=== PATIENT | female | born 1925 | race Caucasian/White ===

== ENCOUNTER → 2016-05-30 | Outpatient (CLI) | payer OTHER, MEDICARE ==
[~2016-05-30] MED LIST: ASPI81TA25 PO; FIBER PO; ISOS60TA25 PO; LISI20TA3 PO; METO50TA7 PO; PRLSR20 PO; RANI300C PO; RIVA1.5T PO; SIME125C52 PO; SIMV40TA4 PO; TRAM-10 PO
--- NOTE | 2016-05-31 18:31 | ECHOCARDIOGRAM REPORT ---
*NOTICE TO RECEIVING DEMOCRAT AGENCY This information is strictly Confidential and protected under [place] law. [place] law prohibits you from making any further disclosure of this information unless further disclosure is expressly permitted by the written consent of the person to whom it pertains or is authorized by law. A general authorization for the release of medical or other information is not sufficient for this purpose. Hospital accepts no responsibility if the information is made available to any other person, INCLUDING THE PATIENT. Interpretation Summary * Name: AYUSH TUCKER Study Date: 05/30/2016 03:02 PM BP: 116/65 mmHg * Patient Location: [facility] HR: 79 * : 1925 (M/d/yyyy) Gender: Female Height: 63 in * Age: 89 yrs Ethnicity: CA Weight: 162 lb * Ordering Physician: Jesus Wagoner * Referring Physician: Jesus Wagoner * Performed By: Ailyn Carter * * Reason For Study: CHF * BSA: 1.8 m2 * Normal biventricular systolic function. * Mild concentric left ventricular hypertrophy. * Biatrial dilatation. * Mild aortic stenosis and regurgitation. * Mild mitral and tricuspid regurgitation. * Moderately elevated right ventricular systolic pressure. * Normal estimated central venous pressure. * The study was technically difficult. Procedure Details * A complete two-dimensional transthoracic echocardiogram was performed (2D, M-mode, Doppler and color flow Doppler). Left Ventricle * The left ventricle is normal in size. * There is mild concentric left ventricular hypertrophy. * Ejection Fraction = >70 %. * The left ventricular wall motion is normal. Right Ventricle * The right ventricle is normal in size and function. Atria * The left atrium is mildly dilated. * The right atrium is moderately dilated. Mitral Valve * There is mild to moderate mitral annular calcification. * There is mild mitral regurgitation. Tricuspid Valve * The tricuspid valve is not well visualized. * There is mild tricuspid regurgitation. * Right ventricular systolic pressure is elevated at 50-60mmHg. Aortic Valve * The aortic valve is trileaflet. * Aortic valve area was calculated at 1.7 cm\S\2 using the continuity equation. * Mild valvular aortic stenosis. * Mild aortic regurgitation. Pulmonic Valve * The pulmonic valve is not well visualized. * There is no significant pulmonary regurgitation. Great Vessels * The aortic root is normal size. * Normal inferior vena cava diameter and respiratory variation suggests normal central venous pressure. MMode 2D Measurements and Calculations IVSd 1.3 cm IVSs 1.8 cm LVIDd 3.3 cm LVIDs 2.0 cm LVPWd 1.4 cm LVPWs 1.5 cm IVS/LVPW 0.96 FS 39.3 % EDV(Teich) 44.3 ml ESV(Teich) 12.8 ml EF(Teich) 71.0 % EDV(cubed) 36.1 ml ESV(cubed) 8.1 ml EF(cubed) 77.6 % % IVS thick 37.1 % % LVPW thick 11.3 % LV mass(C)d 151.2 grams LV mass(C)dI 85.5 grams/m\S\2 LV mass(C)s 121.9 grams LV mass(C)sI 68.9 grams/m\S\2 SV(Teich) 31.5 ml SI(Teich) 17.8 ml/m\S\2 SV(cubed) 28.1 ml SI(cubed) 15.9 ml/m\S\2 Ao root diam 3.3 cm Ao root area 8.4 cm\S\2 ACS 1.1 cm LA dimension 4.6 cm asc Aorta Diam 3.4 cm LA/Ao 1.4 LVOT diam 1.6 cm LVOT area 2.1 cm\S\2 LVAd ap4 15.3 cm\S\2 LVLd ap4 5.6 cm EDV(MOD-sp4) 35.5 ml EDV(sp4-el) 35.6 ml LVAs ap4 7.6 cm\S\2 LVLs ap4 4.8 cm ESV(MOD-sp4) 10.5 ml ESV(sp4-el) 10.3 ml EF(MOD-sp4) 70.4 % EF(sp4-el) 71.1 % LVAd ap2 16.3 cm\S\2 LVLd ap2 6.1 cm EDV(MOD-sp2) 37.5 ml EDV(sp2-el) 37.0 ml LVAs ap2 7.4 cm\S\2 LVLs ap2 4.6 cm ESV(MOD-sp2) 10.7 ml ESV(sp2-el) 10.2 ml EF(MOD-sp2) 71.4 % EF(sp2-el) 72.5 % LVLd %diff 8.4 % EDV(MOD-bp) 37.5 ml LVLs %diff -4.03 % ESV(MOD-bp) 10.9 ml EF(MOD-bp) 71.0 % SV(MOD-sp4) 25.0 ml SI(MOD-sp4) 14.1 ml/m\S\2 SV(MOD-sp2) 26.8 ml SI(MOD-sp2) 15.1 ml/m\S\2 SV(MOD-bp) 26.6 ml SI(MOD-bp) 15.1 ml/m\S\2 SV(sp4-el) 25.3 ml SI(sp4-el) 14.3 ml/m\S\2 SV(sp2-el) 26.8 ml SI(sp2-el) 15.2 ml/m\S\2 Doppler Measurements and Calculations MV E max cally 91.1 cm/sec MV dec time 0.15 sec Ao V2 max 122.3 cm/sec Ao max PG 6.0 mmHg Ao max PG (full) 2.0 mmHg VICKI(V,A) 1.7 cm\S\2 VICKI(V,D) 1.7 cm\S\2 AI max cally 325.8 cm/sec AI max PG 42.5 mmHg AI dec slope 121.9 cm/sec\S\2 AI P1/2t 783.1 msec LV V1 max PG 4.0 mmHg LV V1 mean PG 2.2 mmHg LV V1 max 100.0 cm/sec LV V1 mean 69.6 cm/sec LV V1 VTI 22.0 cm MR max cally 396.5 cm/sec MR max PG 62.9 mmHg SV(LVOT) 45.4 ml SI(LVOT) 25.7 ml/m\S\2 PA V2 max 70.1 cm/sec PA max PG 2.0 mmHg TR max cally 336.1 cm/sec
== END | disposition home or self-care (01) ==
LOC: C.CPL 13:35
PROVIDERS: ATTEND Internal Medicine
DX: I50.9 Heart failure, unspecified (principal)

== ENCOUNTER → 2016-06-01 | Outpatient (CLI) | payer OTHER, MEDICARE ==
[2016-06-01 10:09] LABS: BLOOD UREA NITROGEN 37 mg/dl (7-18); BUN/CREATININE RATIO 28.8 (10-20); CARBON DIOXIDE 21 mmol/L (21-32); CHLORIDE 108 mmol/L (98-107); GLUCOSE 99 mg/dl (70-99); POTASSIUM 4.3 mmol/L (3.5-5.1); SODIUM 141 mmol/L (136-145)
== END | disposition home or self-care (01) ==
LOC: C.LABFOXMH 09:15
PROVIDERS: ATTEND Internal Medicine
DX: I50.22 Chronic systolic (congestive) heart failure (principal)

== ENCOUNTER → 2016-10-15 | Outpatient (CLI) | payer OTHER, MEDICARE ==
[2016-10-15 10:32] LABS: MEAN CELL VOLUME 99.3 fL (80-100); MEAN CORPUSCULAR HEMOGLOBIN 32.3 pg (25-34); MEAN CORPUSCULAR HGB CONC 32.5 g/dl (32-36); MEAN PLATELET VOLUME 11.6 fL (7.4-10.4); PLATELET COUNT 144 K/uL (130-400); RED BLOOD COUNT 4.03 M/uL (4.2-5.4); WHITE BLOOD COUNT 5.65 K/uL (4.8-10.8)
[2016-10-15 10:41] LABS: BLOOD UREA NITROGEN 22 mg/dl (7-18); BUN/CREATININE RATIO 17.2 (10-20); CALCIUM 8.8 mg/dl (8.5-10.1); CARBON DIOXIDE 24 mmol/L (21-32); CHLORIDE 111 mmol/L (98-107); GLUCOSE 90 mg/dl (70-99); POTASSIUM 4.4 mmol/L (3.5-5.1); SODIUM 145 mmol/L (136-145)
== END | disposition home or self-care (01) ==
LOC: C.LABFOXMH 08:42
PROVIDERS: ATTEND Internal Medicine
DX: I10 Essential (primary) hypertension (principal)

== ENCOUNTER → 2017-02-19 | Outpatient (CLI) | payer OTHER, MEDICARE ==
[2017-02-19 11:04] LABS: HEMATOCRIT 41.2 % (37-47); MEAN CELL VOLUME 97.9 fL (80-100); MEAN CORPUSCULAR HEMOGLOBIN 31.4 pg (25-34); PLATELET COUNT 156 K/uL (130-400); RED BLOOD COUNT 4.21 M/uL (4.2-5.4); WHITE BLOOD COUNT 5.34 K/uL (4.8-10.8)
[2017-02-19 11:17] LABS: BLOOD UREA NITROGEN 26 mg/dl (7-18); CALCIUM 9.5 mg/dl (8.5-10.1); CARBON DIOXIDE 25 mmol/L (21-32); CHLORIDE 109 mmol/L (98-107); CREATININE 1.37 mg/dl (0.60-1.20); GLUCOSE 92 mg/dl (70-99); POTASSIUM 4.3 mmol/L (3.5-5.1); SODIUM 141 mmol/L (136-145)
== END | disposition home or self-care (01) ==
LOC: C.LABFOXMH 10:45
PROVIDERS: ATTEND Internal Medicine
DX: I48.91 Unspecified atrial fibrillation (principal)